=== PATIENT | female | born 1995 | race Caucasian/White ===

== ENCOUNTER 2019-06-20 13:23 | Emergency (ER) | payer SELFPAY ==
[~2019-06-20] VITALS: Ht 157.5 cm; Wt 147.9 kg
[2019-06-20 14:04] VITALS: BP 176/69; PULSE 88; RESP 18; Ht 157.5 cm; Wt 147.9 kg
== END 2019-06-20 16:16 | disposition left against medical advice (07) ==
LOC: FTE 13:23
DX: Z53.21 Procedure and treatment not carried out due to patient leaving prior to being seen by health care provider (principal)